=== PATIENT | male | born 1985 | race Caucasian/White ===

== ENCOUNTER 2024-02-21 00:54 | Emergency (ER) | payer OTHER ==
[~2024-02-21] VITALS: Ht 162.6 cm; Wt 90.6 kg
[2024-02-21 01:04] VITALS: O2SAT 98
[2024-02-21 01:40] LABS: CLARITY URINE CLEAR (CLEAR); COLOR URINE YELLOW (YELLOW); GLUCOSE URINE NEGATIVE (NEGATIVE); KETONES URINE NEGATIVE (NEGATIVE); LEUKOCYTE ESTERASE URINE 1+ (NEGATIVE); NITRITE URINE NEGATIVE (NEGATIVE); OCCULT BLOOD URINE NEGATIVE (NEGATIVE); PROTEIN URINE NEGATIVE (NEGATIVE); SPECIFIC GRAVITY URINE 1.029 (1.005-1.030); UROBILINOGEN URINE 0.2 E.U./dL (0.2-1.0)
[2024-02-21] MEDS ORDERED: CEPH500T MT (01:51)
[2024-02-21] MEDS ORDERED: CEFP200T13 MT (01:57)
[2024-02-21 02:20] VITALS: BP 135/76; PULSE 83; RESP 18; TEMP 98.3
[2024-02-21 07:39] LABS: SQUAMOUS EPITHELIAL CELL URINE 1+ /lpf (RARE/1+)
[2024-02-21 07:40] LABS: WBC URINE 25-50 /hpf (0-2)
[2024-02-21 07:41] LABS: BACTERIA URINE NONE SEEN; RBC URINE 0-2 /hpf (0-2)
== END 2024-02-21 02:25 | disposition home or self-care (01) ==
LOC: ER 01:23
DX: N39.0 Urinary tract infection, site not specified (principal)
CPT/HCPCS: 81003; 99283